=== PATIENT | male | born 1940 | race Caucasian/White ===

== ENCOUNTER 2017-04-18 06:21 | Inpatient (IN) | payer OTHER ==
[2017-04-11 15:57] VITALS: BMI 25.4
--- NOTE | 2017-04-14 11:43 | HP ---
Satellite [facility] - Chief Complaint Chief Complaint: left knee pain - Past Medical History Allergies/Adverse Reactions: Allergies Allergy/AdvReac Type Severity Reaction Status Date / Time No Known Drug Allergies Allergy Verified 10/19/12 11:12 - Current Medications Current Medications: Home Medications Medication Instructions Recorded Carvedilol [Coreg] 12.5 mg PO BID 10/18/12 Pradaxa 75 mg PO DAILY 10/18/12 Simvastatin [Zocor] 40 mg PO Q48H 10/18/12 Tamsulosin HCl [Tamsulosin HCl] 0.8 mg PO HS 10/18/12 Acetaminophen 1,000 mg PO QID PRN 04/11/17 Cetirizine HCl [All Day Allergy] 10 mg PO DAILY 04/11/17 Furosemide 20 mg PO DAILY 04/11/17 Pantoprazole Sodium [Protonix] 40 mg PO DAILY 04/11/17 Potassium Chloride 40 meq PO DAILY 04/11/17 Satellite Physical Exam - Physical Examination General Appearance: Well Nourished, Well Developed, Alert & Oriented x3 ENT: Clear Lung: Normal air movement Heart: Regular rate & rhythm Extremities: Other (left knee- + swelling, + ttp, decr rom, nvi xrays show grade 4 tricompartmental djd) Neurological: Intact, Alert, Oriented Satellite Impression/Plan - Impression/Plan Impression: left knee djd Operative Procedure: left jennifer tkr Date to be Performed: 04/18/17
[2017-04-18] MEDS ORDERED: CELECOXIB 200 MG CAPSULE PO ONE (07:10)
[2017-04-18] MEDS ORDERED: CEFAZOLIN 1 GM/D5W 1 GRAM/50 ML BAG IVPB ONE (07:10)
[2017-04-18] MEDS ORDERED: TRANEXAMIC ACID 1000 MG/10 ML VIAL IVPUSH ONE (07:10)
[2017-04-18] MEDS ORDERED: GABAPENTIN 300 MG CAPSULE (FP) PO ONE (07:10)
[2017-04-18] MEDS ORDERED: ROPIVACAINE HCL 0.5% 30ML VIAL ONE (08:07)
[2017-04-18] MEDS ORDERED: SODIUM CHLORIDE 0.9% P/F 10 ML VIAL IJ ONE ×2 (08:07→10:39)
[2017-04-18] MEDS ORDERED: DEXAMETHASONE SOD PHOSPHATE/PF 10 MG/ML SDV ONE (08:07)
[2017-04-18] MEDS ORDERED: MIDAZOLAM HCL 2 MG/2 ML SINGLE DOSE VIAL ONE (08:07)
[2017-04-18] MEDS ORDERED: VANCOMYCIN 1,000 MG VIAL (RESTRICTED TO ID ONLY) ONE (08:31)
[2017-04-18] MEDS ORDERED: ceFAZolin SODIUM 1 GM VIAL ONE (08:31)
[2017-04-18] MEDS ORDERED: BUPIVACAINE HCL/PF 0.5% (5MG/ML) 10 ML VIAL ONE (09:21)
[2017-04-18] MEDS ORDERED: PROPOFOL 20 ML ONE (10:05)
[2017-04-18] MEDS ORDERED: PHENYLEPHRINE HCL 10 MG/1 ML SINGLE DOSE VIAL ONE (10:39)
[2017-04-18] MEDS ORDERED: TRANEXAMIC ACID 1000 MG/10 ML VIAL ONE (10:39)
[2017-04-18] MEDS ORDERED: DEXAMETHASONE SOD PHOSPHATE 4 MG/1 ML VIAL ONE (10:39)
[2017-04-18] MEDS ORDERED: ONDANSETRON 4 MG/2 ML VIAL ONE (10:39)
[2017-04-18] MEDS ORDERED: VANCOMYCIN 1,000 MG VIAL (RESTRICTED TO ID ONLY) IVPB ONE (11:04)
[2017-04-18] MEDS ORDERED: PATIENT'S OWN MEDICATION (NON-FORMULARY) (Simvastatin 40 MG) PO SCH (11:30)
[2017-04-18] MEDS ORDERED: MAGNESIUM HYDROX 2400MG/30ML ORAL SUSPENSION 30 ML CUP PO PRN (11:31)
[2017-04-18] MEDS ORDERED: MAG HYDROX/AL HYDROX/SIMETH 30 ML UNIT-DOSE CUP PO PRN (11:31)
[2017-04-18] MEDS ORDERED: ONDANSETRON 4 MG/2 ML VIAL IVPUSH PRN ×2 (11:31→11:48)
--- NOTE | 2017-04-18 11:33 | OP ---
Operative Note - Note: Operative Date: 04/18/17 (pieter) Pre-Operative Diagnosis: left knee djd Operation: left jennifer tkr Post-Operative Diagnosis: Same as Pre-op Surgeon: Waqar Mir Railway Signal Operator: Jose Alfredo Skelton Anesthesiologist/GAS ENGINE OPERATOR COMPRESSORS: Addy Mendoza Anesthesia: Spinal, Local Specimens Removed: bone fragments Estimated Blood Loss (mls): 150 Operative Report Dictated: Yes
--- NOTE | 2017-04-18 11:43 | SPEC ---
DATE OF OPERATION: 04/18/2017 PREOPERATIVE DIAGNOSIS: Degenerative joint disease, left knee. POSTOPERATIVE DIAGNOSIS: Degenerative joint disease, left knee. PROCEDURE: Left total knee replacement with robotic-assisted navigation (Makoplasty). SURGICAL ATTENDING: Waqar Mir M.D. SODIUM CHLORITE OPERATOR: Connie Swenson ANESTHESIA: Regional and spinal. CLOSURE: A cemented Triathlon knee system with a 5 femur, 5 tibia, 9 polyethylene, 35 patella, No. 1 Vicryl fascia, 0 and 2-0 subcutaneous, 3-0 Monocryl subcuticular with skin glue for skin, 4-0 undyed Vicryl for pin site. ESTIMATED BLOOD LOSS: Negligible. TOURNIQUET TIME: Approximately 30 minutes. COMPLICATIONS: None. CONDITION: To recovery room in stable condition. DESCRIPTION OF OPERATIVE PROCEDURE: Patient was taken to the operating room on April 18, 2017. Regional and general anesthesia was administered by the anesthesiologist. IV Kefzol and TXA were administered by the anesthesiologist. Well-padded pneumatic tourniquet was placed on the proximal thigh. The left lower extremity was prepped and draped in the usual sterile fashion. The leg was exsanguinated with an Esmarch bandage, and tourniquet was inflated to 275 mmHg. A 12 to 15-cm longitudinal midline incision was incised while centered over the patella. The dissection was carried down to the level of the extensor mechanism with sufficient flaps made to adequately perform the procedure. A medial parapatellar arthrotomy was then performed. We made a cuff of tissue on the patella for later closure. The patella was inverted, the knee was flexed up. The fat pad was excised. The subperiosteal dissection was on the anteromedial proximal tibia around towards the direction of the MCL. The ACL and the PCL were transected and debrided. The meniscal remnants of the medial and lateral meniscus were debrided and removed. This allowed the knee to be able to "be brought forward." The checkpoints were malleted into the tibia and into the femur. Two threaded pins were drilled anteroposteriorly proximal to the knee through the previous incision, through the anterior cortex, then just engaging the posterior cortex. To these pins was assembled the femoral navigation array. One handbreadth below the tibial tubercle, 2 stab incisions were used to drill 2 threaded pins in parallel fashion into the tibia, again through the anterior cortex and just engaging the posterior cortex. To these pins was fastened the tibial arrays. The knee was then registered with the navigation device with center of rotation of the hip, medial and lateral malleoli, both checkpoints, and multiple points on both the femur and the tibia to ensure excellent registration. The navigation device was directed off the "top of the bubbles" on both the femur and the tibia. The navigation passed within less than 0.5 mm to plan. The knee was then thoroughly inspected to remove all osteophytes both medially, laterally, and on the femur and the tibia, and whatever osteophytes were available for dissection. The knee was then taken to extension and to flexion, and stressed in both varus and valgus to assess flexion gaps. The virtual position of the components on the navigation device were then manipulated to optimize the position and to ensure equal gaps in both flexion and extension, and both medially and laterally. The robot was then brought into the field and was registered. The cuts were then made both on the femur and on the tibia as to plan. All osteophytes posteriorly were then removed as well. The gaps were then measured again in flexion and extension to be equal in both flexion and extension and medial and laterally. The femoral notch was then made, as we were doing a posterior stabilizing component, with the appropriate sized box. Trial reduction of the femur achieved excellent [id number] fit. A tibial baseplate of appropriate polyethylene thickness was "floated in the knee." It was ensured to be in the excellent position by navigation devices and was pinned in place. The knee was taken through a range of motion, and found to have excellent stability throughout flexion and extension. The patella was calibrated for thickness and osteotomized down to the appropriate level. The appropriate lollipop was used to drill the lug holes in the patella and the trial button was applied. The knee was taken through a range of motion and found to have excellent tracking of the patella, and patella from full extension to full flexion. Trial components were removed, the keel was punched and drilled, and a sclerotic bone on the tibia was drilled to help with cement interdigitation. The knee was thoroughly irrigated with the pulse antibiotic early interventionist. The real components were then cemented in using monitored arrangement cement techniques with antibiotic cement, and pressurization and extension. After the cement was hardened, the knee was thoroughly inspected to remove any extra cement. The real polyethylene component was then clipped into place. Range of motion, stability, and tracking were as described earlier. The checkpoints and the pins were removed. The knee was thoroughly irrigated with antibiotic irrigation. Vancomycin powder was placed into the knee for antibiotic prophylaxis. The medial parapatellar arthrotomy was then closed using number 1 Vicryl interrupted suture. After closure of the deep layer, the knee was taken through a range of motion, and found to have excellent stability of the patella with no dislocation and no undue tension on the repair. The subcutaneous was pulse antibiotic irrigated, and was then closed with 2-0 Vicryl, 3-0 Monocryl subcuticular with the skin glue for the skin. The distal tibial pin site was irrigated thoroughly as well and then closed with 4-0 undyed Vicryl. A sterile Aquacel dressing was applied, followed by a Barrett dressing. Tourniquet was deflated. Total tourniquet time was approximately 75 minutes. No complications. Patient was awakened from anesthesia and transferred to recovery room in stable condition. Postoperative x-rays revealed excellent position of the components. Ernestine [id number]
[2017-04-18] MEDS ORDERED: LACTATED RINGERS SOLUTION 1,000 ML IV SCH ×2 (11:45→12:00)
[2017-04-18] MEDS ORDERED: PROMETHAZINE HCL 25 MG/1 ML VIAL IVPUSH PRN (11:48)
[2017-04-18] MEDS: ACETAMINOPHEN 325 MG TABLET (FP) PO SCH ×2 (13:27→20:38)
[2017-04-18] MEDS: CEFAZOLIN 1 GM/D5W 1 GRAM/50 ML BAG IVPB SCH (17:34)
[2017-04-18] MEDS: oxyCODONE HCL 5 MG TABLET PO PRN ×2 (17:35→20:37)
[2017-04-18] MEDS: TAMSULOSIN HCL 0.4 MG CAP.ER.24H (FP) PO SCH (20:36)
[2017-04-18] MEDS: CARVEDILOL 12.5 MG TABLET (FP) PO SCH (20:37)
[2017-04-18] MEDS: ATORVASTATIN CA 20 MG TABLET (FP) PO SCH (21:12)
[2017-04-18] MEDS: SENNOSIDES/DOCUSATE COMBO (SENNA PLUS) TABLET (UD) PO SCH (21:12)
[2017-04-18] MEDS: oxyCODONE HCL 10 MG SUSTAINED ACTING TABLET PO SCH (21:12)
[2017-04-18] MEDS ORDERED: TAMSULOSIN HCL 0.4 MG CAP.ER.24H (FP) PO SCH (22:00)
[2017-04-18] MEDS ORDERED: CARVEDILOL 12.5 MG TABLET (FP) PO SCH (22:00)
[2017-04-19] MEDS: CEFAZOLIN 1 GM/D5W 1 GRAM/50 ML BAG IVPB SCH (01:44)
[2017-04-19] MEDS: ACETAMINOPHEN 325 MG TABLET (FP) PO SCH ×5 (01:45→20:34)
[2017-04-19] MEDS: oxyCODONE HCL 5 MG TABLET PO PRN ×4 (01:45→21:58)
--- NOTE | 2017-04-19 07:45 | PN ---
Progress Note (short form) - Note Progress Note: Ortho Pt seen and examined s/p left jennifer tkr pod #1 Selected Entries 04/19/17 05:28 Temperature 98.6 F Pulse Rate 76 Respiratory 18 Rate Blood Pressure 110/64 dressing c/d/i, calf soft, nt rom 0-50, nvi cbc pending a/p PT dvt ppx pain control d/c to rehab on Monday
[2017-04-19] MEDS ORDERED: PT OWN MED DRAWER 7, Y5N ONE ×2 (08:02→20:31)
[2017-04-19 08:11] LABS: MCH 30.9 pg (25.7-33.7); MCHC 33.6 g/dl (32.0-35.9); MEAN CELL VOLUME 91.9 fl (80-96); MEAN PLT VOLUME 7.3 fl (7.5-11.1); PLATELET COUNT 247 K/MM3 (134-434); RDW 13.9 % (11.9-15.9); WHITE BLOOD COUNT 13.7 K/mm3 (4.0-10.8)
[2017-04-19] MEDS: MULTIVITAMINS (DAILY MVI) TABLET (FP) PO SCH (08:16)
[2017-04-19] MEDS: PANTOPRAZOLE 40 MG TABLET (FP) PO SCH (08:17)
[2017-04-19] MEDS: DABIGATRAN ETEXILATE MESYLATE 75 MG CAPSULE PO SCH ×2 (08:17→20:34)
[2017-04-19] MEDS: CARVEDILOL 12.5 MG TABLET (FP) PO SCH ×2 (08:21→20:35)
[2017-04-19] MEDS: POTASSIUM CHLORIDE TABS 20 MEQ TABLET.ER (FP) PO SCH (08:21)
[2017-04-19] MEDS: FUROSEMIDE 20 MG TABLET (FP) PO SCH (08:21)
[2017-04-19] MEDS ORDERED: MULTIVITAMINS (DAILY MVI) TABLET (FP) PO SCH (10:00)
[2017-04-19] MEDS ORDERED: POTASSIUM CHLORIDE TABS 20 MEQ TABLET.ER (FP) PO SCH (10:00)
[2017-04-19] MEDS ORDERED: PANTOPRAZOLE 40 MG TABLET (FP) PO SCH (10:00)
[2017-04-19] MEDS ORDERED: DABIGATRAN ETEXILATE MESYLATE 75 MG CAPSULE PO SCH (10:00)
--- NOTE | 2017-04-19 10:08 | PN ---
Progress Note (short form) - Note Progress Note: Pt sitting comfortably, participating in physical therapy. Denies n/v denies sob VAS 4/10 No apparent anesthesia complications. S/p left tkr POD#1 -cont PO pain meds
[2017-04-19] MEDS: SENNOSIDES/DOCUSATE COMBO (SENNA PLUS) TABLET (UD) PO SCH ×2 (11:18→21:57)
[2017-04-19] MEDS: oxyCODONE HCL 10 MG SUSTAINED ACTING TABLET PO SCH ×2 (11:20→21:57)
[2017-04-19] MEDS: TAMSULOSIN HCL 0.4 MG CAP.ER.24H (FP) PO SCH (18:56)
[2017-04-20] MEDS: ACETAMINOPHEN 325 MG TABLET (FP) PO SCH ×4 (03:22→21:31)
[2017-04-20] MEDS: oxyCODONE HCL 5 MG TABLET PO PRN ×2 (06:02→22:02)
[2017-04-20] MEDS ORDERED: PT OWN MED DRAWER 7, Y5N ONE ×2 (08:16→20:57)
[2017-04-20] MEDS: MULTIVITAMINS (DAILY MVI) TABLET (FP) PO SCH (08:24)
[2017-04-20] MEDS: POTASSIUM CHLORIDE TABS 20 MEQ TABLET.ER (FP) PO SCH (08:24)
[2017-04-20] MEDS: CARVEDILOL 12.5 MG TABLET (FP) PO SCH ×2 (08:24→21:00)
[2017-04-20] MEDS: DABIGATRAN ETEXILATE MESYLATE 75 MG CAPSULE PO SCH ×2 (08:24→21:00)
[2017-04-20] MEDS: FUROSEMIDE 20 MG TABLET (FP) PO SCH (08:24)
[2017-04-20] MEDS: PANTOPRAZOLE 40 MG TABLET (FP) PO SCH (08:24)
[2017-04-20 09:06] LABS: MCH 30.8 pg (25.7-33.7); MCHC 33.5 g/dl (32.0-35.9); MEAN PLT VOLUME 8.1 fl (7.5-11.1); PLATELET COUNT 203 K/MM3 (134-434); RDW 14.4 % (11.9-15.9); WHITE BLOOD COUNT 11.2 K/mm3 (4.0-10.8)
[2017-04-20] MEDS: oxyCODONE HCL 10 MG SUSTAINED ACTING TABLET PO SCH ×2 (10:27→21:32)
[2017-04-20] MEDS: SENNOSIDES/DOCUSATE COMBO (SENNA PLUS) TABLET (UD) PO SCH ×2 (10:27→21:32)
[2017-04-20] MEDS: ATORVASTATIN CA 20 MG TABLET (FP) PO SCH (21:32)
[2017-04-20] MEDS: TAMSULOSIN HCL 0.4 MG CAP.ER.24H (FP) PO SCH (21:33)
[2017-04-21] MEDS: ACETAMINOPHEN 325 MG TABLET (FP) PO SCH ×2 (04:48→08:15)
[2017-04-21 06:43] VITALS: BP 135/64; PULSE 86; TEMP 98.5
[2017-04-21] MEDS ORDERED: PT OWN MED DRAWER 7, Y5N ONE (08:11)
[2017-04-21] MEDS: PANTOPRAZOLE 40 MG TABLET (FP) PO SCH (08:13)
[2017-04-21] MEDS: MULTIVITAMINS (DAILY MVI) TABLET (FP) PO SCH (08:14)
[2017-04-21] MEDS: POTASSIUM CHLORIDE TABS 20 MEQ TABLET.ER (FP) PO SCH (08:14)
[2017-04-21] MEDS: DABIGATRAN ETEXILATE MESYLATE 75 MG CAPSULE PO SCH (08:14)
[2017-04-21] MEDS: FUROSEMIDE 20 MG TABLET (FP) PO SCH (08:14)
[2017-04-21] MEDS: CARVEDILOL 12.5 MG TABLET (FP) PO SCH (08:14)
[2017-04-21] MEDS: oxyCODONE HCL 5 MG TABLET PO PRN (08:16)
[2017-04-21] MEDS: oxyCODONE HCL 10 MG SUSTAINED ACTING TABLET PO SCH (10:00)
[2017-04-21] MEDS: SENNOSIDES/DOCUSATE COMBO (SENNA PLUS) TABLET (UD) PO SCH (10:00)
--- NOTE | 2017-04-21 11:19 | CONSULT ---
Consult - text type - Consultation Consultation Note: AVSS COMFORTABLE BANDAGES DRY AND INTACT CALF SOFT NT IMP: DOING WELL PLAN: DC TO SNF
--- NOTE | 2017-04-24 09:48 | PATH ---
Surgical Pathology Report Patient Name: LIOR CORRALES Med. Rec. #: [id number] /Age/Gender: 1940 (Age: 76) / M Account: [id number] Location: [facility] MED-SURG Taken: 04/18/2017 Received: 04/18/2017 Reported: 04/24/2017 Physicians: Waqar Mir M.D. Specimen(s) Received LEFT KNEE BONE Clinical History Osteoarthritis left knee Final Diagnosis BONE, KNEE, LEFT, TOTAL KNEE REPLACEMENT: BONE WITH DEGENERATIVE JOINT DISEASE AND SYNOVIUM. Electronically Signed Margo Paniagua M.D. Gross Description Received in formalin labeled "left knee bones," is a 10.5 x 8.0 x 2.2 cm aggregate of multiple irregular portions of bone and soft tissue. The tibial plateau measures 7.5 x 5.2 x 1.5 cm. There is a 0.9 cm in greatest dimension area of eburnation identified. The remaining articular surfaces are godfrey-yellow and focally granular. The underlying trabecular bone is yellow and hard. Knitter Wire Mesh sections are submitted in one cassette, following decalcification. 04/19/201704/19/2017
== END 2017-04-21 11:28 | DRG 470 ==
LOC: FM/S 06:21
PROVIDERS: ADMIT Orthopaedic Surgery; ATTEND Orthopaedic Surgery
PROC: 0SRD0J9 Replacement of Left Knee Joint with Synthetic Substitute, Cemented, Open Approach (ICD-10-PCS; principal; 2017-04-18 09:30)
DX: M17.12 Unilateral primary osteoarthritis, left knee (principal)
CPT/HCPCS: 36415; 73560-TC-LT; 85027; 88304-TC; 88311-TC; 94010; 94760; 97116-GP; 97162-GP